=== PATIENT | male | born 1985 | race Hispanic/Latino ===

== ENCOUNTER → 2025-09-27 | Emergency (ER) | payer SELFPAY ==
[~2025-09-27] VITALS: Ht 165.1 cm; Wt 63.5 kg
[~2025-09-27] MED LIST: CEPH500B PO; MUPI22OI2 TP
[2025-09-27 21:09] VITALS: BP 106/64; PULSE 87; RESP 16; TEMP 97.4
--- NOTE | 2025-09-27 21:23 | ERN ---
ED Note History of Present Illness Stated Complaint: TOE PAIN Chief Complaint: Toe Pain/Injury Time Seen by MD: 21:13 Time Seen by Midlevel: 21:16 Dictation: 40-year-old male with no medical history coming in with right great toe pain. Patient states he has been dealing with an ingrown toenail states it had heel but today he bumped his toe with the ventilator. Complaining of pain. Allergies: Coded Allergies: No Known Allergies (Unverified Allergy, Unknown, 09/27/25) Past Medical History Past Medical History: Asthma Surgical History: None Review of System Dictation Constitutional: Negative for fever,chills, and weight loss Eyes: Negative for injury, pain,redness, and discharge ENT: Negative for injury,pain or swelling Cardiovascular: Negative for chest pain, palpitations, and edema Respiratory: Negative for shortness of breath, cough, and wheezing, Abdomen/GI: Negative for abdominal pain, nausea, vomiting, diarrhea, and constipation Back: Negative for injury and pain : Negative for injury, bleeding and discharge MS/Extremity: Negative for injury and deformity, right great toe pain Skin: Negative for rash, and discoloration Neuro: Negative for headache, weakness, numbness, tingling, and seizure Psych: Negative for suicide ideation, homicidal ideation, and hallucinations Review of Systems: was completed Initial Vital Sign VS Vital Signs Date Time Temp Pulse Resp B/P (MAP) Pulse Ox O2 Delivery O2 Flow Rate FiO2 09/27/25 21:09 97.3 87 16 106/64 98 Room Air Physical Exam Dictation General: awake, alert, NAD Head/Face: Normocephalic, atraumatic Eyes: PERRL, EOMI, vision at baseline ENT: oral cavity clear, TMs clear, no signs of infection Neck: Trachea midline, supple, no nuchal rigidity Cardiovascular: RRR, normal S1/S2, No MRGs, no JVD Respiratory: CTAB, no respiratory distress, No rales or wheezes Abdomen: Soft, non-tender, non-distended, normal bowel sounds, no guarding or rebound. Skin: Warm, dry, normal turgor, no rash female with a right ingrown toenail, no drainage MS/Extremity: Pulses equal, no cyanosis, neurovascular intact, FROM Neuro: COAx4, GCS 15, strength 5/5, CN 2-12 intact, normal cerebellar exam, normal gait, Psych: Normal behavior, mood, and affect normal ED Course ED Course Orders Procedure Category Date Status Time Ketorolac PHA 09/27/25 Verified Tromethamine 15mg/Ml 21:30 Vital Signs Date Time Temp Pulse Resp B/P (MAP) Pulse Ox O2 Delivery O2 Flow Rate FiO2 09/27/25 21:09 97.3 87 16 106/64 98 Room Air Medical Decision Making MDM MDM: 40-year-old male with no medical history coming in with right great toe pain. Patient states he has been dealing with an ingrown toenail states it had heel but today he bumped his toe with a piece of furniture. Complaining of pain toe. Full range of motion to the toe. Low suspicion for any fracture. Patient will have the area cleaned, give pain medication and referred to Dr. Walker specialist in Podiatry. We will prescribe patient antibiotics to take in the meantime. Educated on plate in his return back to the ER. Differential diagnosis: Contusion, ingrown toenail Rationale: Tests considered and ordered secondary to shared decision making include: Previous outside records reviewed: Old ER visits. Risk of complication and/or morbidity or mortality of patient management: None Medications-Per medication reconciliation Need for hospitalization: Patient does not meet criteria for hospitalization. Need for emergency major/minor surgery: No There are no social concerns with this patient. Prescription drug management Prescriptions will include symptomatic care Patient's prior external medical records from other ER visits were reviewed by me as indicated. Prior testing and results from previous visits were reviewed. Prior tests were taken into account with medical decision making and resource utilization, independent historian/historians were used to obtain complete medical history. I independently interpreted the test that were performed, results were reviewed by me and considered findings on radiology if ordered. Medical management and examination interpretation discussions were had by me with other qualified healthcare professionals as indicated for the patient's care. DX & DISP Disposition: Discharge Departure Impression: Primary Impression: Ingrown left big toenail Condition: Stable Scripts Mupirocin (Mupirocin Ointment) 2 % Oint 1 APPL TP TID for 5 Days, #15 GM 0 Refills apply to affected area(s) Prov: ANTONIETTA STEINBERG FOOD INSPECTOR 09/27/25 Cephalexin Monohydrate (Keflex) 500 Mg Cap 500 MG PO BID for 7 Days, #28 CAP Prov: STEINBERG,ANTONIETTA FOOD INSPECTOR 09/27/25 Additional Instructions: This is an ongoing problem, you need to see Dr. Walker which has a specialist in Podiatry for further intervention, evaluation. Take antibiotics as prescribed. Keep the toe clean and dry. Referrals: SELF,REFERRAL (PCP) MARISELA WALKER DPM Time of Disposition: 21:22 I have reviewed the case, and I agree with, Diagnosis and Plan ANTONIETTA STEINBERG CNP Sep 27, 2025 21:23
== END ==
LOC: EDH 21:00
DX: L60.0 Ingrowing nail (principal); M79.674 Pain in right toe(s); J45.909 Unspecified asthma, uncomplicated
CPT/HCPCS: 99283; 96372; J1885